=== PATIENT | female | born 1940 | race Caucasian/White ===

== ENCOUNTER 2016-11-12 04:48 | Inpatient (IN) | payer MEDICARE, BC ==
[2016-11-12] VITALS (8 sets, daily range): BP systolic 72–123; BP diastolic 37–84
[~2016-11-12] VITALS: Ht 157.5 cm; Wt 109.5 kg
[2016-11-12] MEDS ORDERED: LASIX 20 MG TAB20 MG PO (05:38)
[2016-11-12] MEDS ORDERED: K-TABS10 MEQ PO (05:39)
[2016-11-12 05:40] LABS: HEMATOCRIT 35.8 % (37.0-47.0); HEMOGLOBIN 11.2 g/dl (12.0-16.0); IMMATURE GRANULOCYTES 0.9 % (0.0-1.0); MEAN CELL VOLUME 94.2 fL CALC (80.0-100.0); MEAN CORPUSCULAR HGB 29.5 pG CALC (26.0-32.0); MEAN CORPUSCULAR HGB CONC 31.3 g/L CALC (32.0-36.0); NEUT# 11.82 thou/uL (2.00-7.15); RED BLOOD COUNT 3.8 mill/uL (4.20-5.60); RED CELL DISTRI WIDTH 15.2 % (11.5-15.5)
[2016-11-12] MEDS ORDERED: METOPROLOL SUCC50 MG PO (05:40)
[2016-11-12] MEDS ORDERED: SIMVASTATIN40 MG PO (05:41)
[2016-11-12] MEDS ORDERED: DIOVAN HC2 PO (05:41)
[2016-11-12] MEDS ORDERED: ZYRTEC10 M5 PO (05:41)
[2016-11-12] MEDS ORDERED: WARFARIN2.5 MG PO ×2 (05:42→05:44)
[2016-11-12 06:01] LABS: ALBUMIN 3.9 g/dL (3.2-5.0); ALKALINE PHOSPHATASE 83 u/l (38-126); ANION GAP 15 (6-22 (CALC)); BILIRUBIN, TOTAL 0.6 mg/dL (0.0-1.4); BUN 27 mg/dL (8-23); BUN/CREATININE RATIO 23 (12-20 (CALC)); CALCIUM 8.9 mg/dL (8.4-10.2); CARBON DIOXIDE 28 mmol/l (22-30); CHLORIDE 102 mmol/l (95-108); CREATININE 1.2 mg/dL (0.5-1.0); GFR 44 ML/MIN (>=60 (CALC)); GFR FOR AFR.AMER. 53 ML/MIN (>=60 (CALC)); GLUCOSE 104 mg/dL (82-115); POTASSIUM 3.5 mmol/l (3.5-5.1); SGOT/AST 32 u/l (9-36); SGPT/ALT 40 u/l (11-66); SODIUM 141 mmol/l (137-146); TOTAL PROTEIN 7.2 g/dL (6.3-8.2)
[2016-11-12 06:02] LABS: INTERNATIONAL NORMALIZED RATIO 3.5 RATIO (0.7-1.3); PROTHROMBIN TIME 42.4 SECONDS (9.0-12.5)
[2016-11-12 06:05] LABS: INFLUENZA A NONE DETECTED (NONE DETECT); INFLUENZA B NONE DETECTED (NONE DETECT)
[2016-11-12 06:12] LABS: MYOGLOBIN 153 ng/mL (0 - 62)
[2016-11-12 06:38] LABS: URINE BILIRUBIN - DIPSTICK NEGATIVE (NEGATIVE); URINE BLOOD DIPSTICK NEGATIVE (NEGATIVE); URINE CLARITY CLEAR; URINE COLOR YELLOW; URINE GLUCOSE - DIPSTICK NEGATIVE (NEGATIVE); URINE KETONE NEGATIVE (NEGATIVE); URINE LEUK ESTERASE NEGATIVE (NEGATIVE); URINE NITRITE - DIPSTICK NEGATIVE (Negative); URINE PH 5.5 (4.5-8.0); URINE PROTEIN - DIPSTICK NEGATIVE (NEG-TRACE); URINE UROBILINOGEN - DIPSTICK 0.2 E.U./dL (0.2)
[2016-11-13] VITALS (8 sets, daily range): BP systolic 86–141; BP diastolic 44–102
[2016-11-13 05:55] LABS: HEMOGLOBIN 9.1 g/dl (12.0-16.0); IMMATURE GRANULOCYTES 0.4 % (0.0-1.0); MEAN CELL VOLUME 93.2 fL CALC (80.0-100.0); MEAN CORPUSCULAR HGB 29.3 pG CALC (26.0-32.0); MEAN CORPUSCULAR HGB CONC 31.4 g/L CALC (32.0-36.0); NEUT# 7.74 thou/uL (2.00-7.15); RED BLOOD COUNT 3.11 mill/uL (4.20-5.60); RED CELL DISTRI WIDTH 15.6 % (11.5-15.5)
[2016-11-13 06:11] LABS: INTERNATIONAL NORMALIZED RATIO 2.9 RATIO (0.7-1.3); PROTHROMBIN TIME 34.3 SECONDS (9.0-12.5)
[2016-11-13 06:16] LABS: ANION GAP 12 (6-22 (CALC)); BUN 21 mg/dL (8-23); BUN/CREATININE RATIO 21 (12-20 (CALC)); CALCIUM 8.2 mg/dL (8.4-10.2); CARBON DIOXIDE 24 mmol/l (22-30); CHLORIDE 105 mmol/l (95-108); GFR 54 ML/MIN (>=60 (CALC)); GFR FOR AFR.AMER. > 60 ML/MIN (>=60 (CALC)); GLUCOSE 102 mg/dL (82-115); POTASSIUM 3.4 mmol/l (3.5-5.1); SODIUM 138 mmol/l (137-146)
[2016-11-14 00:12] VITALS: BP 154/82
[2016-11-14 05:45] VITALS: BP 121/66
[2016-11-14 05:51] LABS: HEMATOCRIT 29.1 % (37.0-47.0); HEMOGLOBIN 9.3 g/dl (12.0-16.0); MEAN CELL VOLUME 91.5 fL CALC (80.0-100.0); MEAN CORPUSCULAR HGB 29.2 pG CALC (26.0-32.0); RED BLOOD COUNT 3.18 mill/uL (4.20-5.60); RED CELL DISTRI WIDTH 14.9 % (11.5-15.5)
[2016-11-14 06:13] LABS: PROTHROMBIN TIME 35.4 SECONDS (9.0-12.5)
[2016-11-14 06:23] LABS: ANION GAP 12 (6-22 (CALC)); BUN 16 mg/dL (8-23); BUN/CREATININE RATIO 18 (12-20 (CALC)); CALCIUM 8.7 mg/dL (8.4-10.2); CARBON DIOXIDE 24 mmol/l (22-30); CHLORIDE 109 mmol/l (95-108); CREATININE 0.9 mg/dL (0.5-1.0); GFR > 60 ML/MIN (>=60 (CALC)); GFR FOR AFR.AMER. > 60 ML/MIN (>=60 (CALC)); GLUCOSE 115 mg/dL (82-115); MAGNESIUM 2.3 mg/dL (1.6-2.3); POTASSIUM 4.2 mmol/l (3.5-5.1); SODIUM 140 mmol/l (137-146)
[2016-11-14 07:50] VITALS: BP 146/97
[2016-11-14 12:33] VITALS: BP 145/69
[2016-11-14] MEDS ORDERED: MEDDOSEPAK PO (14:51)
[2016-11-14] MEDS ORDERED: ROBITUSSIN AC10 ML PO (14:52)
[2016-11-14] MEDS ORDERED: Levaquin PO (14:52)
[2016-11-14] MEDS ORDERED: TOPROL XL PO (14:54)
[2016-11-14 15:57] VITALS: BP 145/69
== END 2016-11-14 17:05 | disposition home health service (06) | DRG 871 ==
LOC: ENPENDDIS → ED 04:48 → ED-I 06:32 → ED 06:37 → ICU 06:38 → MS2 11-13 14:00
PROVIDERS: Emergency Medicine; Internal Medicine; ADMIT Internal Medicine; ATTEND Internal Medicine
DX: A41.9 Sepsis, unspecified organism (principal); J18.9 Pneumonia, unspecified organism; I11.0 Hypertensive heart disease with heart failure; E87.2 Acidosis; I48.2 Chronic atrial fibrillation; I50.9 Heart failure, unspecified; Z79.01 Long term (current) use of anticoagulants

== ENCOUNTER 2016-11-28 01:46 | Inpatient (IN) | payer MEDICARE, BC ==
[2016-11-28] VITALS (13 sets, daily range): BP systolic 101–156; BP diastolic 58–86
[~2016-11-28] VITALS: Ht 157.5 cm; Wt 104.0 kg
[~2016-11-28 01:46] MED LIST: DIOVAN HC2 PO; K-TABS10 MEQ PO; LASIX 20 MG TAB20 MG PO; Levaquin PO; MEDDOSEPAK PO; METOPROLOL SUCC50 MG PO; ROBITUSSIN AC10 ML PO; SIMVASTATIN40 MG PO; TOPROL XL PO; WARFARIN2.5 MG PO; ZYRTEC10 M5 PO
--- NOTE | 2016-11-28 01:46 | NUR ---
PATIENT TO BED 9 VIA EMS STRETCHER. UNDRESSED INTO A GOWN, PLACED ON MONITOR. TRIAGE COMPLETED AT BEDSIDE. PATIENT RESPIRATIONS APPEAR LABORED WITH CONVERSATION. AUDIBLE WHEEZING HEARD. PATIENT ALSO WITH A COUGH. AWAITING MD GURROLA
--- NOTE | 2016-11-28 01:48 | NUR ---
PATIENT RHYTHM IS AFIB AT A RATE OF 120-160. PATIENT STATES SHE HAS A HX OF THE SAME.
--- NOTE | 2016-11-28 02:15 | NUR ---
PATIENT MEDICATED FOR ELEVATED TEMP AND AFIB HR OF 130-160. WILL MONITOR TEMP AND HEART RATE FOR EFFECT.
[2016-11-28 02:24] LABS: HEMATOCRIT 35.7 % (37.0-47.0); HEMOGLOBIN 11.4 g/dl (12.0-16.0); IMMATURE GRANULOCYTES 0.3 % (0.0-1.0); MEAN CELL VOLUME 91.3 fL CALC (80.0-100.0); MEAN CORPUSCULAR HGB 29.2 pG CALC (26.0-32.0); MEAN CORPUSCULAR HGB CONC 31.9 g/L CALC (32.0-36.0); NEUT# 7.52 thou/uL (2.00-7.15); RED BLOOD COUNT 3.91 mill/uL (4.20-5.60); RED CELL DISTRI WIDTH 16.2 % (11.5-15.5)
--- NOTE | 2016-11-28 02:30 | NUR ---
HEART RATE IS UNCHANGED AFTER CARDIZEM BOLUS. AWARE.
[2016-11-28] MEDS ORDERED: Levaquin PO (02:36)
[2016-11-28] MEDS ORDERED: TESSALON PERLE100 MG PO (02:36)
--- NOTE | 2016-11-28 03:05 | NUR ---
CARDIZEM GTT STARTED AT 5MG. WILL MONITOR HEART RATE AND BLOOD PRESSURE. PATIENT AWARE OF PLANS TO ADMIT.
[2016-11-28 03:12] LABS: ALKALINE PHOSPHATASE 85 u/l (38-126); ANION GAP 15 (6-22 (CALC)); BILIRUBIN, TOTAL 0.8 mg/dL (0.0-1.4); BUN 9 mg/dL (8-23); BUN/CREATININE RATIO 9 (12-20 (CALC)); CALCIUM 9.5 mg/dL (8.4-10.2); CARBON DIOXIDE 24 mmol/l (22-30); CHLORIDE 101 mmol/l (95-108); GFR 54 ML/MIN (>=60 (CALC)); GFR FOR AFR.AMER. > 60 ML/MIN (>=60 (CALC)); GLUCOSE 115 mg/dL (82-115); POTASSIUM 3.5 mmol/l (3.5-5.1); SGOT/AST 19 u/l (9-36); SGPT/ALT 32 u/l (11-66); SODIUM 136 mmol/l (137-146); TOTAL PROTEIN 7.6 g/dL (6.3-8.2)
[2016-11-28 03:23] LABS: MYOGLOBIN 67 ng/mL (0 - 62)
--- NOTE | 2016-11-28 03:34 | NUR ---
NURSING ELECTRICIAN POWERHOUSE AWARE OF ICU ADMISSION. PATIENT TO REMAIN IN ER UNTIL NEXT SHIFT WHEN STAFF ARRIVES.
--- NOTE | 2016-11-28 03:35 | NUR ---
CARDIZEM GTT REMAINS AT 5MG. BP 98/56. KVO FLUIDS RUNNING. WILL CONTINUE TO MONITOR.
--- NOTE | 2016-11-28 03:45 | NUR ---
BREATHING TREATMENT GIVEN.IT WAS EXPLAINT TO HER HOW TO BREATH DEEPLY FOR GOOD DEPOSITION TO THE LUNGS.
--- NOTE | 2016-11-28 03:50 | NUR ---
PATIENT RECEIVING NEB TREATMENT. BP IMPROVED. CARDIZEM GTT INCREASED TO 10MG/MIN. WILL CONTINUE TO MONITOR.
--- NOTE | 2016-11-28 04:18 | NUR ---
HEART RATE 136-179 CARDIZEM INCREASED TO 15MG. WILL MONITOR FOR EFFECT. PATIENT AWARE OF PLANS TO ADMIT. AWAITING DAY SHIFT TO ARRIVE PRIOR TO TRANSPORT.
[2016-11-28 04:30] LABS: INTERNATIONAL NORMALIZED RATIO 2.9 RATIO (0.7-1.3); PROTHROMBIN TIME 34.1 SECONDS (9.0-12.5)
--- NOTE | 2016-11-28 05:00 | NUR ---
PATIENT REMAINS ON 15MG/MIN. WILL CONTINUE TO TITRATE FOR EFFECT. PATIENT ASSISTED ON AND OFF BEDSIDE COMMODE. URINE SAMPLE COLLECTED AND SENT. HEART RATE REMAINS LABILE.
--- NOTE | 2016-11-28 05:18 | NUR ---
RESPIRATORY AT BEDSIDE IN ATTEMPT TO GET ABG.
[2016-11-28 05:47] LABS: URINE BILIRUBIN - DIPSTICK NEGATIVE (NEGATIVE); URINE BLOOD DIPSTICK NEGATIVE (NEGATIVE); URINE CLARITY CLEAR; URINE COLOR YELLOW; URINE GLUCOSE - DIPSTICK NEGATIVE (NEGATIVE); URINE KETONE NEGATIVE (NEGATIVE); URINE LEUK ESTERASE NEGATIVE (NEGATIVE); URINE NITRITE - DIPSTICK NEGATIVE (Negative); URINE PROTEIN - DIPSTICK NEGATIVE (NEG-TRACE); URINE SPECIFIC GRAVITY <=1.005; URINE UROBILINOGEN - DIPSTICK 0.2 E.U./dL (0.2)
--- NOTE | 2016-11-28 06:00 | NUR ---
PATIENT RESTING QUIETLY ON STRETCHER. HR IMPROVING. RANGES 103-130. DENIES ANY PAIN AT PRESENT TIME. RESPIRATIONS UNLABORED AT REST.
--- NOTE | 2016-11-28 06:50 | NUR ---
REPORT CALLED TO YAEL MOYA LPN IN ICU. PATIENT READIED FOR TRANSPORT TO FLOOR ON MONITOR, VIA STRETCHER, WITH RN.
--- NOTE | 2016-11-28 07:10 | NUR ---
PT ADMITTED TO ICU BED 7 VIA STRETCHER, PT OFF STRETCHER AND AMBULATED TO STANDING SCALE, WEIGHT OBTAINED AND PT TRANSFERRED TO BED WITH STEADY GAIT, ALL MONITORING EQUIPMENT EXPLAINED PRIOR TO APPLICATION, ADMISSION ASSESSMENT COMPLETED SEE INTERVENTION, SKIN WARM AND DRY SOME MILD DYSPNEA WITH EXERTION BUT RECOVERS QUICKLY WITH REST, O2 CURRENTLY AT 2L VIA NC, PT NOT O2 DEPENDENT AT HOME, STATES SHE HAS BEEN ON ANTIBIOTICS RECENTLY AND NOT FELLING ANY BETTER, SKIN IS WARM DRY AND INTACT, WITH NO BREAKDOWN NOTED, LUNGS ARE COARSE WITH EXPIRATORY WHEEZES NON PRODUCTIVE TIGHT COUGH NOTED, PT HAS LARGE ANKLES WITH 1-2+ EDEMA NON-PITTING, PT STATES THEY ARE "NORMAL" FOR HER, PPPB, PT HAS 20G EMS SITE IN LEFT AC WITH CARDIZEM GTT INFUSING AT 15MG AND NS A T KVO, BP STABLE, TEMP 97.6 AT THIS TIME, SAFETY MEASURES INTRODUCED AND ORIENTED TO ROOM AND UNIT, CALL MATT WITHIN REACH, WILL CONTINUE TO MONITOR.
--- NOTE | 2016-11-28 07:30 | NUR ---
IN TO ROOM, PLAN OF CARE DISCUSSED, WILL CONTINUE TO MONITOR
--- NOTE | 2016-11-28 07:45 | NUR ---
SET UP ASSIST PROVIDED FOR AM MEAL, OFFERS NO NEW COMPLAINTS, TELE CONTINUES READING A FIB RATE 90-120'S, CALL MATT WITHIN REACH
--- NOTE | 2016-11-28 09:11 | NUR ---
PT OOB TO BSC, MICHAEL CARE ASSIST PROVIDED ALONG WITH PARTIAL BAT, UP TO RECLINER AT BEDSIDE, CALL MATT WITHIN REACH AND TOLERATED ACTIVITY WELL WITH SOME DYSPNEA NOTED BUT RECOVERS QUICKLY WITH REST, WILL CONTINUE TO MONITOR
--- NOTE | 2016-11-28 10:12 | NUR ---
HR REMAINS CONTROLLED, CARDIZEM GTT DECREASED ACCORDINGLY WILL MONITOR TOLERANCE.
--- NOTE | 2016-11-28 10:30 | NUR ---
ASSISTED PT TO THE BSC THEN BACK TO THE RECLINER, PT AMBULATED WITH A STRONG STEADY GAIT, PT TOLERATED ACTIVITY WELL, CALL MATT WITHIN REACH
--- NOTE | 2016-11-28 11:30 | NUR ---
SETUP ASSISTANCE PROVIDED WITH LUNCH TRAY
--- NOTE | 2016-11-28 12:10 | NUR ---
PT TOLERATED LUNCH WELL, SITTING IN THE RECLINER, NO S/S OF DISTRESS
--- NOTE | 2016-11-28 13:45 | NUR ---
PT USES BSC WITH SBA, TOLERATES ACTIVITY WELL, CARDIZEM REMAINS ON HOLD WITH HR REMAINING CONTROLLED, BP STABLE, CALL MATT WITHIN REACH
--- NOTE | 2016-11-28 14:18 | NUR ---
MED SURG CALLED FOR ROOM ASSIGNMENT ROOM 271 ASSIGNED.
--- NOTE | 2016-11-28 15:15 | NUR ---
REPORT CALLED TO HILLARY OVALLE ON MED SURG.
--- NOTE | 2016-11-28 15:29 | NUR ---
pt transferred to med surg via wheelchair, all belongings sent with patient.
--- NOTE | 2016-11-28 15:30 | NUR ---
FROM ICU VIA WHEELCHAIR ACCOMPANIED BY YAEL MOYA LPN. AMBULATED TO BEDSIDE RECLINER WITH STAND BY ASSIST. RESPS EVEN AND UNLABORED ON ROOM AIR, TELE MONITOR APPLIED. VOICES NO C/O AT THIS TIME. PO FLUIDS OFFERED. ORIENTED TO ROOM AND CALL SYSTEM. SAFETY PRECAUTIONS REINFORCED. BED IN LOWEST POSITION WITH WHEELS LOCKED. CALL LIGHT WITHIN REACH. WILL CONTINUE TO MONITOR.
--- NOTE | 2016-11-28 19:00 | NUR ---
RECEIVED CHANGE OF SHIFT REPORT ON PATIENT. NO COMPLAINTS VOICED. PATIENT SEATED UP IN CHAIR.
--- NOTE | 2016-11-29 | NUR ---
PATIENT RESTING COMFORTABLY IN BED. NO ACUTE DISTRESS NOTED.
[2016-11-29 04:06] VITALS: BP 130/83
--- NOTE | 2016-11-29 07:18 | NUR ---
BEDSIDE REPORT RECEIVED FROM YAMILE LOFTON. PT DENIES PAIN. REPORTING OF CONCERNS ENCOURAGED. PLAN OF CARE DISCUSSED. FALL PRECAUTIONS REINFORCED. CALL LIGHT REVIEWED AND IN REACH. PT STATES UNDERSTANDING.
[2016-11-29 07:50] VITALS: BP 121/54
--- NOTE | 2016-11-29 08:41 | NUR ---
INCENTIVE SPIROMETER PROVIDED TO PT. PT ISNTRUCTED ON USE AND INDICATION. 1000 ML INCENTIVE VOLUME ACHIEVED, GOAL OF 1500 ML SET. PT STATES UNDERSTANDING OF USE.
--- NOTE | 2016-11-29 10:14 | NUR ---
LASIX IV ADMINISTERED. PT EDUCATED ON INDICATION AND SIDE EFFECTS. PT STATES UNDERSTANDING. SITTING IN CHAIR AT BEDSIDE. BSC IN CLOSE PROXIMITY. CALL LIGHT REVIEWED AND IN REACH.
[2016-11-29 10:40] LABS: INTERNATIONAL NORMALIZED RATIO 4.1 RATIO (0.7-1.3); PROTHROMBIN TIME 49.4 SECONDS (9.0-12.5)
[2016-11-29 10:52] VITALS: BP 138/70
--- NOTE | 2016-11-29 12:56 | NUR ---
PT SITTING IN CHAIR AT BEDSIDE. DR. ALLRED IN TO SEE PT AGAIN AT THIS TIME. PT STATES SHE FEELS SAME THIS AM, NOT BETTER. WILL CONTINUE TO MONITOR.
[2016-11-29 15:07] VITALS: BP 132/76
--- NOTE | 2016-11-29 17:56 | NUR ---
PT SITTING IN CHAIR AT BEDSIDE. REPORTS BACK PAIN. TYLENOL AVAILABILITY TIME DISCUSSED, PT STATES UNDERSTANDING. WILL CONTINUE TO MONITOR.
--- NOTE | 2016-11-29 19:00 | NUR ---
RECEIVED REPORT ON PATIENT. PATIENT UP TO CHAIR. NO ACUTE DISTRESS NOTED.
[2016-11-29 19:45] VITALS: BP 118/75
[2016-11-30] VITALS: BP 133/82
--- NOTE | 2016-11-30 | NUR ---
PATIENT ASSISTED TO BED. NO VOICED COMPLAITS AT THIS TIME.
[2016-11-30 04:00] VITALS: BP 138/80
--- NOTE | 2016-11-30 04:00 | NUR ---
PATIENT'S AWAKE AND IN NO APPARENT DISTRESS
[2016-11-30 06:02] LABS: HEMATOCRIT 32.6 % (37.0-47.0); HEMOGLOBIN 10.1 g/dl (12.0-16.0); IMMATURE GRANULOCYTES 0.5 % (0.0-1.0); MEAN CELL VOLUME 92.4 fL CALC (80.0-100.0); MEAN CORPUSCULAR HGB 28.6 pG CALC (26.0-32.0); NEUT# 6.25 thou/uL (2.00-7.15); RED BLOOD COUNT 3.53 mill/uL (4.20-5.60); RED CELL DISTRI WIDTH 16.4 % (11.5-15.5)
[2016-11-30 06:22] LABS: INTERNATIONAL NORMALIZED RATIO 3.9 RATIO (0.7-1.3)
[2016-11-30 06:26] LABS: ANION GAP 14 (6-22 (CALC)); BUN 27 mg/dL (8-23); BUN/CREATININE RATIO 30 (12-20 (CALC)); CALCIUM 9.4 mg/dL (8.4-10.2); CARBON DIOXIDE 28 mmol/l (22-30); CHLORIDE 102 mmol/l (95-108); CREATININE 0.9 mg/dL (0.5-1.0); GFR > 60 ML/MIN (>=60 (CALC)); GFR FOR AFR.AMER. > 60 ML/MIN (>=60 (CALC)); GLUCOSE 122 mg/dL (82-115); POTASSIUM 4.2 mmol/l (3.5-5.1); SODIUM 139 mmol/l (137-146)
--- NOTE | 2016-11-30 07:05 | NUR ---
BEDSIDE REPORT RECEIVED FROM YAMILE LOFTON. PT SITTING IN CHAIR AT BEDSIDE. DENIES PAIN. NO SOB NOTED. DRY COUGH OBSERVED. PLAN OF CARE DISCUSSED. REPORTING OF CONCERNS ENCOURAGED. IS AT BEDSIDE, USE ENCOURAGED. CALL LIGHT REVIEWED AND IN REACH. PT STATES UNDERSTANDING.
[2016-11-30 07:23] LABS: PROTHROMBIN TIME 46.4 SECONDS (9.0-12.5)
[2016-11-30 08:30] VITALS: BP 135/62
--- NOTE | 2016-11-30 09:51 | NUR ---
PT SATURAION RECORDED AT REST ON ROOM AIR 95% PT AMBULATED AT STEADY GATE X'S 4 MINUTES SATS ON ROOM AIR TO 82% RR TO 30 WOB INCREASED PT STATES SOB. PLACED ON O2 AT 2LPM NC SATS TO 95% IN 1 MINUTE DECREASE IN WOB PT STATES BREATHING EASIER
[2016-11-30 10:54] VITALS: BP 136/71
[2016-11-30] MEDS ORDERED: DUONEB IN (11:42)
[2016-11-30] MEDS ORDERED: PREDNISONE10 MG PO (11:42)
--- NOTE | 2016-11-30 12:36 | NUR ---
PT SITTING IN CHAIR AT BEDSIDE. STATES UNDERSTANDING OF DISCHARGE PROCESS. AWAITING O2 DELIVERY AND RIDE HOME TO ARRIVE.
--- NOTE | 2016-11-30 15:58 | NUR ---
PT SITTING IN CHAIR AT BEDSIDE. DENIES COMPLAINTS. AWAITING HOME O2 DELIVERY STILL.
[2016-11-30 16:04] VITALS: BP 150/90
--- NOTE | 2016-11-30 17:20 | NUR ---
Discharge instructions given. Patient verbalizes understanding of same. Discharged in stable condition via Wheelchair to Home with family. All belongings sent with pt.
== END 2016-11-30 17:20 | DRG 190 ==
LOC: ENPENDDIS → ED 01:46 → ED-I 04:50 → ED 04:57 → ICU 04:58 → MS2 04:58
PROVIDERS: Emergency Medicine; Internal Medicine; ADMIT Internal Medicine; ATTEND Internal Medicine
DX: J44.0 Chronic obstructive pulmonary disease with (acute) lower respiratory infection (principal); J96.01 Acute respiratory failure with hypoxia; J20.9 Acute bronchitis, unspecified; I48.91 Unspecified atrial fibrillation; I10 Essential (primary) hypertension; E78.5 Hyperlipidemia, unspecified; M79.89 Other specified soft tissue disorders; G47.33 Obstructive sleep apnea (adult) (pediatric); Z79.01 Long term (current) use of anticoagulants; Z91.14 Patient's other noncompliance with medication regimen